=== PATIENT | male | born 1940 | race Caucasian/White ===

== ENCOUNTER 2018-01-15 11:36 | Emergency (ER) | payer MEDICARE, BC ==
[~2018-01-15] VITALS: Ht 170.2 cm; Wt 77.7 kg
[2018-01-15 11:41] VITALS: BP 139/87
[2018-01-15] MEDS ORDERED: ZOCOR20 M1 PO (11:43)
[2018-01-15] MEDS ORDERED: PRILOSEC 20MG20 MG PO (11:43)
[2018-01-15] MEDS ORDERED: DITROPAN XL10 M1 (11:43)
== END 2018-01-15 12:04 | disposition home or self-care (01) ==
LOC: ED 11:36
DX: S61.441A Puncture wound with foreign body of right hand, initial encounter (principal); W45.8XXA Other foreign body or object entering through skin, initial encounter; Y92.009 Unspecified place in unspecified non-institutional (private) residence as the place of occurrence of the external cause; Z28.82 Immunization not carried out because of caregiver refusal; Z79.899 Other long term (current) drug therapy

== ENCOUNTER → 2022-07-12 | Outpatient (CLI) | payer MEDICARE, BC ==
[~2022-07-12] MED LIST: DITROPAN XL10 M1; PRILOSEC 20MG20 MG PO; ZOCOR20 M1 PO
[2022-07-12 11:49] LABS: HEMATOCRIT 52.2 % (42.0-52.0); HEMOGLOBIN 17.2 g/dL (13.5-18.0); LYMPH# 1.12 K/mm3 (1.50-4.00); MEAN CELL VOLUME 95 fl (78-100); MEAN CORPUSCULAR HEMOGLOBIN 31 pg (27-31); MEAN CORPUSCULAR HGB CONC 33 g/dL (33-37); MEAN PLATELET VOLUME 9.5 fl (7.4-10.4); MONO # 0.72 K/mm3 (0.20-0.80); NEU # 5.51 K/mm3 (1.40-6.50); PLATELET COUNT 177 K/mm3 (130-400); RED BLOOD COUNT 5.47 M/mm3 (4.20-5.60); RED CELL DISTRIBUTION WIDTH 13.1 % (11.5-14.5); WHITE BLOOD COUNT 7.4 K/mm3 (4.8-10.8)
[2022-07-12 11:52] LABS: CALCIUM 9.9 mg/dL (8.3-10.5)
[2022-07-12 12:22] LABS: POTASSIUM 4.2 mmol/L (3.5-5.1)
== END ==
LOC: LAB 11:21
PROVIDERS: Nurse Practitioner
DX: U07.1 COVID-19 (principal); E78.2 Mixed hyperlipidemia

== ENCOUNTER → 2023-07-12 | Outpatient (CLI) | payer MEDICARE, BC ==
[2023-07-12 11:37] LABS: BASO # 0.01 K/mm3 (0.02-0.10); EOS # 0.08 K/mm3 (0.04-0.40); EOS % 1.2 % (0.0-4.0); HEMOGLOBIN 16.5 g/dL (13.5-18.0); LYMPH# 1.34 K/mm3 (1.50-4.00); MEAN CELL VOLUME 96 fl (78-100); MEAN CORPUSCULAR HEMOGLOBIN 31 pg (27-31); MEAN CORPUSCULAR HGB CONC 32 g/dL (33-37); MEAN PLATELET VOLUME 9.3 fl (7.4-10.4); MONO # 0.38 K/mm3 (0.20-0.80); NEU # 4.65 K/mm3 (1.40-6.50); PLATELET COUNT 218 K/mm3 (130-400); RED BLOOD COUNT 5.34 M/mm3 (4.20-5.60); RED CELL DISTRIBUTION WIDTH 13.1 % (11.5-14.5); WHITE BLOOD COUNT 6.5 K/mm3 (4.8-10.8)
[2023-07-12 11:49] LABS: ALBUMIN 4.2 g/dL (3.4-4.8)
[2023-07-12 11:51] LABS: TOTAL PROTEIN 6.8 g/dL (6.2-8.1)
[2023-07-12 11:53] LABS: TOTAL BILIRUBIN 0.8 mg/dL (0.2-1.2)
== END ==
LOC: LAB 11:09
PROVIDERS: Nurse Practitioner
DX: Z00.00 Encounter for general adult medical examination without abnormal findings (principal)

== ENCOUNTER → 2023-12-06 | Outpatient (CLI) | payer MEDICARE, BC ==
[2023-12-06 11:44] LABS: BASO # 0.02 K/mm3 (0.02-0.10); EOS # 0.14 K/mm3 (0.04-0.40); EOS % 2.4 % (0.0-4.0); HEMATOCRIT 49.8 % (42.0-52.0); HEMOGLOBIN 16.1 g/dL (13.5-18.0); LYMPH# 1.56 K/mm3 (1.50-4.00); MEAN CELL VOLUME 96 fl (78-100); MEAN CORPUSCULAR HEMOGLOBIN 31 pg (27-31); MEAN CORPUSCULAR HGB CONC 32 g/dL (33-37); MONO # 0.41 K/mm3 (0.20-0.80); PLATELET COUNT 216 K/mm3 (130-400); RED BLOOD COUNT 5.18 M/mm3 (4.20-5.60); WHITE BLOOD COUNT 5.7 K/mm3 (4.8-10.8)
[2023-12-06 11:50] LABS: ALBUMIN 4.3 g/dL (3.4-4.8)
[2023-12-06 11:52] LABS: TOTAL PROTEIN 6.7 g/dL (6.2-8.1)
== END ==
LOC: LAB 11:26
PROVIDERS: Nurse Practitioner
DX: N23 Unspecified renal colic (principal); E16.1 Other hypoglycemia